=== PATIENT | female | born 1975 | race Caucasian/White ===

== ENCOUNTER 2018-12-29 19:35 | Emergency (ER) | payer SELFPAY ==
[~2018-12-29] VITALS: Ht 175.3 cm; Wt 127.3 kg
[2018-12-29 19:50] VITALS: Ht 175.3 cm; Wt 127.3 kg
[2018-12-29] MEDS ORDERED: TOPROL XL50 MG PO (19:51)
[2018-12-29] MEDS ORDERED: HCTZ25 MG (19:52)
[2018-12-29] MEDS ORDERED: DOXYCYCLINE HYC75 MG PO (19:52)
[2018-12-29] MEDS ORDERED: STERAPRED 5MG 125 MG PO (19:52)
[2018-12-29] MEDS ORDERED: ALBUTEROL SULF8.5 GM INH (19:53)
[2018-12-29] MEDS ORDERED: TESSALON PERLE100 MG PO (22:53)
[2018-12-29 23:06] VITALS: BP 189/108
== END 2018-12-29 23:13 | disposition home or self-care (01) ==
LOC: D.ER 19:35
DX: I10 Essential (primary) hypertension (principal); Z91.14 Patient's other noncompliance with medication regimen; Z87.01 Personal history of pneumonia (recurrent)